=== PATIENT | female | born 1960 | race Caucasian/White ===

== ENCOUNTER 2016-08-26 14:56 | Emergency (ER) | payer OTHER ==
[2016-08-26 16:58] VITALS: BP 123/67
--- NOTE | 2016-08-26 17:52 | UC ---
Shoulder Pain HPI - HPI Summary HPI Summary: The patient comes in today for: 1. Left shoulder pain: Onset: 4-5 hours ago. Palliative/provocative: Abducting the arm anteriorly or laterally. Quality: Before lifting--aching. With lifting--sharp Region: Lateral left shoulder at the proximal head. Severity: 6/10 without moving. Time: Constant. Associated symptoms: Numbness: None. 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 Previous disease: No previous shoulder problems. * - History of Current Complaint Chief Complaint: UCUpperExtremity Stated Complaint: SHOULDER INJURY Time Seen by Provider: 08/26/16 17:46 Hx Last Menstrual Period: 7 years ago. ?: No - Allergies/Home Medications Allergies/Adverse Reactions: Allergies Allergy/AdvReac Type Severity Reaction Status Date / Time No Known Allergies Allergy Verified 08/26/16 16:51 Home Medications: Home Medications Fluticasone NASAL SPRAY 50MCG* [Flonase NASAL SPRAY 50MCG*] 2 spray DAILY [History Confirmed 08/26/16] Omeprazole CAP* [Prilosec CAP* 20 MG] 1 tab DAILY 08/26/16 [History Confirmed ] PMH/Surg Hx/FS Hx/Imm Hx Previously Healthy: No - Allergic rhinitis Endocrine History Of: Denies: Diabetes, Thyroid Disease, Hyperthyroidism, Hypothyroidism, Dyslipidemia Cardiovascular History Of: Denies: Cardiac Disorders, Hypertension, Pacemaker/ICD, Myocardial Infarction , Congestive Heart Failure, Atrial Fibrillation, Deep Vein Thrombosis, Bleeding Disorders Respiratory History Of: Denies: COPD, Asthma, Bronchitis, Pneumonia, Pulmonary Embolism GI/ History Of: Reports: Gastroesophageal Reflux, Ulcer - In the past--not currently. Denies: Gastrointestinal Bleed, Gall Bladder Disease, Kidney Stones, Diverticulitis, Renal Disease, Urosepsis Neurological History Of: Denies: TIA, CVA, Dementia, Seizures, Migraine Psychological History Of: Denies: Anxiety, Depression, Bipolar Disorder, Schizophrenia, Post Traumatic Stress Disorder Cancer History Of: Denies: Lung Cancer, Colorectal Cancer, Breast Cancer, Prostate Cancer, Cervical Cancer Other History Of: Negative For: HIV, Hepatitis B, Hepatitis C, Anticoagulant Therapy - Surgical History Surgical History: Yes Surgery Procedure, Year, and Place: tubal. cholecystectomy. appendectomy. sinus. x2 - Family History Known Family History: Positive: Diabetes Negative: Cardiac Disease, Hypertension - Social History Occupation: Employed Full-time Alcohol Use: Rare Substance Use Type: None Smoking Status (MU): Never Smoked Tobacco - Immunization History Most Recent Influenza Vaccination: None Review of Systems Constitutional: Negative Skin: Negative Eyes: Negative ENT: Negative Respiratory: Negative Cardiovascular: Negative Gastrointestinal: Negative Genitourinary: Negative Musculoskeletal: Arthralgia, Myalgia All Other Systems Reviewed And Are Negative: Yes Physical Exam Triage Information Reviewed: Yes Appearance: Well-Appearing, No Pain Distress - As long as she does not move her arm., Well-Nourished Vital Signs: Initial Vital Signs Temp 97.8 F 08/26/16 16:52 Pulse 70 08/26/16 16:52 Resp 18 08/26/16 16:52 BP 123/67 08/26/16 16:52 Pulse Ox 100 08/26/16 16:52 Vital Signs Reviewed: Yes Eyes: Positive: Conjunctiva Clear. Negative: Discharge ENT: Positive: Hearing grossly normal. Negative: Pharyngeal erythema, Nasal congestion, Nasal drainage, TM bulging, TM dull, TM red, Tonsillar swelling, Tonsillar exudate Dental: Negative: Gross Decay/Caries @, Dental Fracture @ Neck: Positive: Supple, Nontender, No Lymphadenopathy. Negative: Nuchal Rigidity Respiratory: Positive: Chest non-tender, Lungs clear, No respiratory distress, No accessory muscle use. Negative: Crackles, Wheezing Cardiovascular: Positive: RRR, No Murmur Abdomen Description: Positive: Nontender, No Organomegaly, Soft. Negative: Distended, Guarding Musculoskeletal: Positive: Strength Limited @ - limited due to pain., ROM Limited @ - With passive lateral abduction, there is about 30 degrees of abduction., Other: - She has only about 10 degrees of lateral abduction. There is about maybe 30 degrees anterior abduction. There is no erythema or ecchynmosis of the left shoulder. There is no tenderness over the coracoid process, nor of the biceps tendon. There is slight tendeness below the AC joint. There is no pain with palpation of the posterior or anterior proximal head of the humerus. Neurological: Positive: Alert, Muscle Tone Normal Psychological: Positive: Age Appropriate Behavior, Consolable Skin: Negative: rashes, breakdown Diagnostics - Radiology No standard instances Xray Interpretation: No Acute Changes Radiology Interpretation Completed By: Radiologist Shoulder Course/Dx - Course Course Of Treatment: Patient was told of her negative x-ray. She was told of her treatment options. At this time, she agrees to a sling and NSAIDS (she is on omeprazole). She will be referred to ortho due to possible rotator cuff injury. - Differential Dx/Diagnosis Differential Diagnosis/HQI/PQRI: Sprain, Strain Provider Diagnoses: Left shoulder strain--possible rotator cuff injury. Discharge - Discharge Plan Condition: Stable Disposition: HOME Patient Education Materials: Rotator Cuff Injury (ED) Forms: *Work Release Referrals: Jude Jackson MD [Primary Care Provider] - Antonio Worthy MD [Medical Doctor] - As Soon As Possible (Please call the orthopedic surgeon's off on Sunday for a follow up appointment for a possible rotator cuff tear.)
[2016-08-26] MEDS ORDERED: Ketorolac INJ* 60 MG/2 ML VIAL IM ONE (17:55)
--- NOTE | 2016-08-26 18:50 | RAD ---
INDICATION: Left shoulder pain COMPARISON: None TECHNIQUE: Routine frontal and Y views were obtained. FINDINGS: The bony structures, joint spaces, and soft tissues are normal for age. IMPRESSION: Negative examination.
== END 2016-08-26 19:42 | disposition home or self-care (01) ==
LOC: UCEAST 14:56
DX: S46.912A Strain of unspecified muscle, fascia and tendon at shoulder and upper arm level, left arm, initial encounter (principal); X50.1XXA Overexertion from prolonged static or awkward postures, initial encounter; Y92.89 Other specified places as the place of occurrence of the external cause; Y99.0 Civilian activity done for income or pay; J30.9 Allergic rhinitis, unspecified; K21.9 Gastro-esophageal reflux disease without esophagitis
CPT/HCPCS: 96372; 99213; G0463; J1885